=== PATIENT | female | born 1980 | race Caucasian/White ===

== ENCOUNTER 2017-02-06 12:01 | Emergency (ER) | payer OTHER ==
--- NOTE | 2017-02-06 14:37 | DIAGNOSTIC IMAGING REPORT ---
PROCEDURE: CT ABD/PELVIS WITH CONTRAST INDICATION: Bilateral flank pain. Nausea. Vomiting. TECHNIQUE: 100 ml of Isovue 300 were injected intravenously and axial images were obtained of the entire abdomen and pelvis with sagittal and coronal reformations. COMPARISON: Compared CT abdomen and pelvis on 02/04/2012. FINDINGS: ABDOMEN: Mild prominence of the gallbladder and common duct (9 mm). No evidence of intrahepatic ductal dilation. Liver, spleen, pancreas, kidneys, and aorta are normal. Bowel pattern is normal, including appendix. PELVIS: Uterus and adnexal structures are normal. No evidence of free fluid. IMPRESSION: 1. Mild prominence of the gallbladder and common duct (9 mm) appears unchanged. This may be within normal limits. Nevertheless, correlation with liver function studies is recommended. 2. Otherwise negative CT abdomen and pelvis. 3. Findings discussed with KARENA Hernandez. All CT scans at this facility use dose modulation, iterative reconstruction, and/or weight-based dosing when appropriate to reduce radiation dose to as low as reasonably achievable.
--- NOTE | 2017-02-06 14:43 | ED ORDER SUMMARY ---
..... Patient: KOURTNEY MARTINEZ OrderSheet [facility] VisitID: [id number] [place] [address] 36y, F Registration Date/Time: 02/06/2017 ORDER SHEET Weight: 53.5 kg (stated) Allergies: No Known Drug Allergy GENERAL ORDERS: CT Abd/Pel w Cont (No) (pending) Urgent (12:50 02/06/2017 ABlanchette PA-C) (Ack 12:53 TBergley) (14:14 JSanders R.N.) CBC w Diff Urgent (12:51 02/06/2017 ABlanchette PA-C) (Ack 12:53 TBergley) (13:01 JSanders R.N.) Amylase Urgent (12:51 02/06/2017 ABlanchette PA-C) (Ack 12:53 TBergley) (13:01 JSanders R.N.) Lipase Urgent (12:51 02/06/2017 ABlanchette PA-C) (Ack 12:53 TBergley) (13:01 JSanders R.N.) UA-Culture if indicated Urgent (12:51 02/06/2017 ABlanchette PA-C) (Ack 12:53 TBergley) (13:01 JSanders R.N.) CMP Urgent (12:51 02/06/2017 ABlanchette PA-C) (Ack 12:53 TBergley) (13:01 JSanders R.N.) MEDICATION ORDERS: IV FLUIDS: IV NS with Normal Saline 1 Liter: initial bolus none -, then 1000 mL/hr for X1 (NOW) (12:49 02/06/2017 ABlanchette PA-C) (Ack 12:54 SReitz R.N.) (13:02 JSanders R.N.) Reglan IV 10 mg (NOW) (12:49 02/06/2017 ABlanchette PA-C) (Ack 12:54 SReitz R.N.) (13:05 JSanders R.N.) Zofran IV 4 mg (NOW) (14:23 02/06/2017 ABlanchette PA-C) (Ack 14:30 SReitz R.N.) (14:34 Daniel [place]) ORDER SHEET NOTES: [Electronically signed by Val Burgos R.N. (15:22 02/06/2017)] [Electronically signed by Jada Carnes PA-C (16:11 02/06/2017)] [Electronically locked/signed by Val Burgos R.N. (15:22 02/06/2017)]
--- NOTE | 2017-02-06 14:43 | ED NURSING NOTES ---
Clinical Report - [facility] [address] [place] [address] 02/06/2017 12:02 Patient: KOURTNEY MARTINEZ TRIAGE Triage time 12:Feb 06 2017. Acuity: LEVEL 4. Chief Complaint: ABDOMINAL PAIN, NAUSEA and VOMITING and (bilat flank pain). 12:16 02/06/17. SEPSIS SCREEN: Sepsis Screen. Negative (no infection suspected/documented). HASEEB COMA SCORE: Haseeb Coma Scale: 15- eyes open spontaneously (4); best verbal response- oriented x 4 (5); best motor response- obeys commands (6). --12:16 Lona Amador R.N. 12:09 02/06/17. BP: 108/72 (regular adult cuff) taken on the left arm, while sitting. HR: 99. RR: 18. O2 saturation: 98% on room air. Temp: 97.9 F (oral). Pain level now: 8/10. --12:16 Lona Amador R.N. Weight: 53.5 kg stated. Height/Length: 68 inches Per Patient. BMI: 17.9. --12:11 Lona Amador R.N. Medications HYDROmorphone HCl Oral. --12:13 Lona Amador R.N. Gabapentin Oral (Tablet 600 mg) 2 tablets, daily. --12:13 Lona Amador R.N. Topamax Oral (Tablet 50 mg) 1 tablet, daily. --12:13 Lona Amador R.N. Allergies No Known Drug Allergy. --12:13 Lona Amador R.N. History Historian: patient. Onset. (few months). ( This has been happening for the last few months, comes and goes. Has lost approximately 10 pounds). She has had nausea, vomiting and abdominal pain. Last oral intake by patient was (noon yesterday). 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 Last time was last night for the Zofran and 0600 for hydromorphone). PAST MEDICAL HX: Last normal menstrual period- 2.5 weeks ago. Not sexually active. SOCIAL HX: Current every day light tobacco smoker- less than 1/2 a pack per day. History of occasional drug use: marijuana. No alcohol use. No recent travel. No infectious disease exposure. No known contact with a sick individual. ABUSE ASSESSMENT: No report of abuse. --12:16 Lona Amador R.N. Arrived by private vehicle. Primary physician (Greg Mota). --12:16 Lona Amador R.N. PROBLEMS: Acute Pain. Crps nerve damage. CRPS. Urinary Calculi. Nephrolithiasis. Abdominal Pain. --12:13 Lona Amador R.N. ADDITIONAL SURGERIES: no known surgeries. Interventions ID band on patient. To treatment room. --12:16 Lona Amador R.N. PHYSICAL ASSESSMENT 12:17 02/06/17. Ambulatory to room. GENERAL / NEURO / PSYCH: Alert. Oriented X 4. RESPIRATORY: Respirations not labored. CVS: Capillary refill less than 2 seconds. GI / : Abdomen soft. Guarding present. SKIN: Skin is warm. --12:17 Lona Amador R.N. NURSING PROGRESS NOTES The plan of care for this patient has been created. Head of bed elevated. Reassurance given. Two patient identifiers checked. Call light placed in reach. Side rails up x 1. Bed placed in lowest position. Brakes of bed on. Patient ready for evaluation- chart flagged and ED physician notified. --12:17 Lona Amador R.N. ( report given by POORNIMA Zamorano). --12:54 Val Burgos R.N. 12:52 02/06/2017 Site #1 started via IV in the left antecubital space with an 20g angiocath, with aseptic technique and good blood return; one attempt. Blood drawn: rainbow set. Saline lock flushed with 10 mL saline. --13:02 Lona Amador R.N. 13:02 02/06/2017 Started bag #1 1000 mL IV Fluids IV NS (Saline); at 1000 mL/hr over 1 hour(s) via site #1 via IV pump. Allergies verified and confirmed 5 rights. IV patency established. IV site checked: no pain, redness, or swelling. IV flushed thoroughly pre- and post-medication administration. --13:02 Lona Amador R.N. 13:05 02/06/2017 Reglan (Metoclopramide HCl) IVP 10 mg given over 2 minute(s) via site #1. Allergies verified and confirmed 5 rights. IV patency established. IV site checked: no pain, redness, or swelling. IV flushed thoroughly pre- and post-medication administration. IVP given by RN. --13:05 Lona Amador R.N. ( Patient given another blanket for comfort). --13:07 Lona Amador R.N. 13:01 02/06/17. BP: 106/67 (regular adult cuff) taken on the right arm, while sitting. HR: 79. RR: 16 (regular). O2 saturation: 100% on room air. Pain level now: 8/10. Additional comments: bilat flank. --13:07 Lona Amador R.N. 14:12 02/06/17. BP: 108/58 (regular adult cuff) taken on the right arm, while sitting. HR: 80. RR: 18 (regular). O2 saturation: 100% on room air. Pain level now: 8/10. --14:13 Lona Amador R.N. ( Patient just got back from CT, her mom is now here sitting at bedside). --14:13 Lona Amador R.N. 13:30 02/06/2017 Reglan IVP Response: pain is improving. Symptoms have improved the patient feels better. --14:13 Lona Amador R.N. 14:13 02/06/2017 IV Fluids IV NS Discontinued: bag #1 completed. Total amount infused: 1000 mL. IV patency established. IV site checked: no pain, redness, or swelling. IV flushed thoroughly. --14:13 Lona Amador R.N. 14:34 02/06/2017 Zofran (Ondansetron HCl) IVP 4 mg given over 1 minute(s) via site #1. Allergies verified and confirmed 5 rights. IV patency established. IV site checked: no pain, redness, or swelling. IV flushed thoroughly pre- and post-medication administration. --14:34 Val Burgos R.N. 14:34 02/06/17. BP: 106/58. HR: 76. RR: 18. O2 saturation: 98%. Pain level now 8/10. --14:36 Val Burgos R.N. DISPOSITION / DISCHARGE 14:52 02/06/17. BP: 106/55. HR: 67. RR: 17. O2 saturation: 98%. Temp: 98.1 F. Pain level now 0/10. --14:52 Russell Baxter R.N. 14:48 02/06/2017 Site #1 removed upon discharge. Catheter intact. Manual pressure and bandaid applied. --15:22 Val Burgos R.N. 14:52 02/06/17. Departure time: 1448. Condition at departure: improved and stable. No learning barriers present. Discharge instructions provided and reviewed with the patient and family. Reviewed medication(s) side effects, precautions, dosing and course information. Prescription(s) given to the patient. Activity restrictions (rest) reviewed. Patient verbalized understanding. Written instructions provided in [place]an. The patient was discharged by the physician title i assistant. She was discharged home and accompanied by family. She left the Emergency Department ambulatory and via private vehicle. Family member driving. --14:52 Russell Baxter R.N. Locked/Released at 02/06/2017 15:22 by Val Burgos R.N.
--- NOTE | 2017-02-06 14:43 | ED ORDER SUMMARY ---
..... Patient: KOURTNEY MARTINEZ OrderSheet [facility] VisitID: [id number] [place] [address] 36y, F Registration Date/Time: 02/06/2017 ORDER SHEET Weight: 53.5 kg (stated) Allergies: No Known Drug Allergy GENERAL ORDERS: CT Abd/Pel w Cont (No) (pending) Urgent (12:50 02/06/2017 ABlanchette PA-C) (Ack 12:53 TBergley) (14:14 JSanders R.N.) CBC w Diff Urgent (12:51 02/06/2017 ABlanchette PA-C) (Ack 12:53 TBergley) (13:01 JSanders R.N.) Amylase Urgent (12:51 02/06/2017 ABlanchette PA-C) (Ack 12:53 TBergley) (13:01 JSanders R.N.) Lipase Urgent (12:51 02/06/2017 ABlanchette PA-C) (Ack 12:53 TBergley) (13:01 JSanders R.N.) UA-Culture if indicated Urgent (12:51 02/06/2017 ABlanchette PA-C) (Ack 12:53 TBergley) (13:01 JSanders R.N.) CMP Urgent (12:51 02/06/2017 ABlanchette PA-C) (Ack 12:53 TBergley) (13:01 JSanders R.N.) MEDICATION ORDERS: IV FLUIDS: IV NS with Normal Saline 1 Liter: initial bolus none -, then 1000 mL/hr for X1 (NOW) (12:49 02/06/2017 ABlanchette PA-C) (Ack 12:54 SReitz R.N.) (13:02 JSanders R.N.) Reglan IV 10 mg (NOW) (12:49 02/06/2017 ABlanchette PA-C) (Ack 12:54 SReitz R.N.) (13:05 JSanders R.N.) Zofran IV 4 mg (NOW) (14:23 02/06/2017 ABlanchette PA-C) (Ack 14:30 SReitz R.N.) (14:34 Daniel [place]) ORDER SHEET NOTES: [Electronically signed by Val Burgos R.N. (15:22 02/06/2017)] [Electronically signed by Jada Carnes PA-C (16:11 02/06/2017)] [Electronically locked/signed by Val Burgos R.N. (15:22 02/06/2017)]
--- NOTE | 2017-02-06 14:43 | ED CLINICAL REPORT ---
Clinical Report - Physicians/Mid Levels [facility] [address] [place] [address] 02/06/2017 12:02 Patient: CINDI MARTINEZ Time Seen: 12:18; initial patient contact. Arrived- By private vehicle. Historian- patient. HISTORY OF PRESENT ILLNESS Chief Complaint: VOMITING and DIARRHEA. This started 2 weeks ago; pt is on chronic pain contract/meds currently on dilaudid 8mg [id number] for crps of the back. states she became nauseated about 2 weeks ago, and has had difficulty keeping her meds down since, with low back pain, had an ultrasound and it was neg...no black or tarry stools, no coffee ground emesis,no fever, no chills, no real abdominal pain either...she has a history of some cyclical vomiting. and is still present. The patient has had flank pain. She has had nausea and vomiting. No diarrhea, black stools or bloody stools. Has recently been camping. The illness is described as moderate. Similar symptoms previously: Several times. Recent medical care: The patient was seen recently at another facility in a clinic. REVIEW OF SYSTEMS No fever, difficulty with urination or dark urine. She has had muscle aches. All systems otherwise negative, except as recorded above. PAST HISTORY See nurses notes. Problems: Acute Pain. Lifestyle / Substance Problems. Crps nerve damage. CRPS. Vomiting. Urinary Calculi. Nephrolithiasis. Abdominal Pain. Immunizations. LNMP - Last Normal Menstrual Period. Pyelonephritis [RuleOut]. Additional Surgeries: no known surgeries. Medications: Topamax Oral (Tablet 50 mg) 1 tablet, daily. Gabapentin Oral (Tablet 600 mg) 2 tablets, daily. HYDROmorphone HCl Oral. Allergies: No Known Drug Allergy. SOCIAL HISTORY Never smoker. Occasional alcohol use. No drug use. FAMILY HISTORY Negative. ADDITIONAL NOTES The nursing notes have been reviewed with agreement regarding the chief complaint, HPI, ROS, PMH and patient medications and allergies. PHYSICAL EXAM Vital Signs: 02/06/2017 12:09 BP: 108/72. HR: 99. RR: 18. O2 saturation: 98%. Temp: 97.9 F. Pain level now: 06/24. Have been reviewed. Blood pressure normal. Appearance: Alert. Oriented X3. Appears to be in pain. Patient in mild distress. Eyes: Pupils equal, round and reactive to light. Eyes normal inspection. ENT: Ears normal. Nose normal. Neck: Normal inspection. Neck supple. CVS: Normal heart rate and rhythm. Heart sounds normal. Pulses normal. Respiratory: No respiratory distress. Breath sounds normal. Abdomen: Soft and nontender. No organomegaly. No mass. Femoral pulses equal. Back: Normal inspection. No CVA tenderness. Skin: Skin warm and dry. Normal skin color. No rash. Normal skin turgor. Extremities: No lower extremity edema. Neuro: Oriented X 3. LABS, X-RAYS, AND EKG Abdominal CT: Name: Cindi Martinez : 1980 MR#: [id number] Ordering Provider: TREY RUEDA Exam(s): CT ABD/PELVIS WITH CONTRAST Date of Exam: 02/06/2017 __ PROCEDURE: CT ABD/PELVIS WITH CONTRAST INDICATION: Bilateral flank pain. Nausea. Vomiting. TECHNIQUE: 100 ml of Isovue 300 were injected intravenously and axial images were obtained of the entire abdomen and pelvis with sagittal and coronal reformations. COMPARISON: Compared CT abdomen and pelvis on 02/04/2012. FINDINGS: ABDOMEN: Mild prominence of the gallbladder and common duct (9 mm). No evidence of intrahepatic ductal dilation. Liver, spleen, pancreas, kidneys, and aorta are normal. Bowel pattern is normal, including appendix. PELVIS: Uterus and adnexal structures are normal. No evidence of free fluid. IMPRESSION: 1. Mild prominence of the gallbladder and common duct (9 mm) appears unchanged. This may be within normal limits. Nevertheless, correlation with liver function studies is recommended. 2. Otherwise negative CT abdomen and pelvis. 3. Findings discussed with KARENA Hernandez. All CT scans at this facility use dose modulation, iterative reconstruction, and/or weight-based dosing when appropriate to reduce radiation dose to as low as reasonably achievable. Electronically Final signed by:Josh Alvarez MD 02/06/2017 2:34:48 PM Technologist: CODY. Laboratory Tests: UA-Culture if indicated: (LORRIE: 02/06/2017 12:12) ( [facility] [place] 13:12) Final results Test Result Flag Units (Reference) URINE COLOR ESTEFANI URINE APPEARANCE CLEAR URINE GLUCOSE NEGATIVE (NEGATIVE) URINE BILIRUBIN ICTOTEST NEGATIVE (NEGATIVE) URINE KETONE NEGATIVE (NEGATIVE) URINE SPECIFIC GRAVITY 1.025 (1.010-1.030) URINE PH 5.5 (5.0-8.0) URINE PROTEIN TRACE (NEGATIVE) URINE UROBILINOGEN 1.0 EU/dL (0.2-1.0) URINE NITRITE NEGATIVE (NEGATIVE) URINE BLOOD NEGATIVE (NEGATIVE) URINE LEUK ESTERASE NEGATIVE (NEGATIVE) URINE RBC 5-10 rbc/hpf (0-1) URINE WBC 1-3 wbc/hpf (0-1) URINE EPITHELIAL CELLS 3-5 EPI/hpf (0-5) URINE BACTERIA FEW (1+) (NONE SEEN) URINE COMMENT CULT NOT INDICATED 3+ MUCOUSURINE CULTURES ARE SET-UP BASED ON THE FOLLOWING CRITERIA:POSITIVE NITRITEPOSITIVE LEUKOCYTE ESTERASEGREATER THAN 10 WHITE BLOOD CELLSMODERATE (2+) OR GREATER BACTERIA CBC w Diff: (LORRIE: 02/06/2017 12:55) ( [facility] [place] 13:15) Final results Test Result Flag Units (Reference) WHITE BLOOD COUNT 7.6 K/uL (4.5-11.5) RED BLOOD COUNT 4.94 M/uL (4.00-5.20) HEMOGLOBIN 14.2 gm/dL (12.0-16.0) HEMATOCRIT 42.6 % (36.0-46.0) MEAN CELL VOLUME 86 fL (80-100) MEAN CORPUSCULAR HGB 29 pg (26-34) MEAN CORPUSCULAR HGB CONC 33 g/dL (31-37) RED CELL DISTRIBUTION WIDTH 13.7 % (11.6-14.8) PLATELET COUNT 296 K/uL (150-400) NEUTROPHIL % 79.5 H % (50-75) LYMPH % 12.8 L % (25-40) MONO % 7.3 % (3-14) EOSINOPHIL % 0.1 % (0-4) BASOPHIL % 0.3 % (0-2) CMP: (LORRIE: 02/06/2017 12:55) ( MsgRcvd 02/06/2017 13:39) Final results Test Result Flag Units (Reference) GLUCOSE 112 H mg/dL (70-110) BUN 17 mg/dL (7-18) CREATININE 0.7 mg/dL (0.6-1.3) Estimated GFR >60 mL/min Estimated GFR- >60 mL/min Note: Persistent reduction over 3 months in eGFR<60 mL/min/1.73 m2 defines CKD. Patients with eGFR values>=60 mL/min/1.73 m2 may also have CKD if evidence ofpersistent proteinuria. Additional information may be foundat www.kidney.org. SODIUM 139 mmol/L (136-145) POTASSIUM 4.4 mmol/L (3.5-5.1) CHLORIDE 101 mmol/L (98-107) CARBON DIOXIDE 31 mmol/L (21-32) CALCIUM 9.1 mg/dL (8.5-10.1) TOTAL PROTEIN 7.8 g/dL (6.4-8.2) ALBUMIN 3.8 g/dL (3.3-5.0) BILIRUBIN, TOTAL 0.4 mg/dL (0.0-1.0) ALKALINE PHOSPHATASE 106 U/L (46-116) AST (SGOT) 40 H U/L (15-37) ALT (SGPT) 38 U/L (12-78) LIPASE 60 L U/L (73-393) AMYLASE 56 U/L (25-115) . PROGRESS AND PROCEDURES Course of Care: sx markedly improved with reglan IV. Patient is stable. Physical exam findings are improved. Symptoms much better. CLINICAL IMPRESSION Intractable vomiting with nausea and dehydration. Possible narcotic withdrawal. INSTRUCTIONS Rest. Take clear liquids only for the next 24 hours as needed. Advance diet as tolerated. No alcohol. (take your anti nausea medication and then your chronic pain meds, and follow up with your pain specialist Wednesday as scheduled.). Warnings: Further evaluation is necessary. GENERAL WARNINGS: Return or contact your physician immediately if your condition worsens or changes unexpectedly, if not improving as expected, or if other problems arise. Your Current Medications: CONTINUE TAKING THE FOLLOWING MEDICATIONS: Gabapentin Oral : Tablet 600 mg, 2 tablets daily. HYDROmorphone HCl Oral. Topamax Oral : Tablet 50 mg, 1 tablet daily. Prescription Medications: Zofran (orally disintegrating tablets) 4 mg: take 1 orally every 6 hours as needed for nausea and vomiting. Dispense ten (10). No refill. Substitution is permissible. Follow-up: Follow up with your doctor Wednesday even if well. Call for an appointment. Understanding of the discharge instructions verbalized by patient. (Electronically signed by Trey Rueda PA-C 02/06/2017 16:11)
--- NOTE | 2017-02-06 14:43 | ED NURSING NOTES ---
Clinical Report - Nurses [facility] [address] [place] [address] 02/06/2017 12:02 Patient: KOURTNEY MARTINEZ TRIAGE Triage time 12:Feb 06 2017. Acuity: LEVEL 4. Chief Complaint: ABDOMINAL PAIN, NAUSEA and VOMITING and (bilat flank pain). 12:16 02/06/17. SEPSIS SCREEN: Sepsis Screen. Negative (no infection suspected/documented). HASEEB COMA SCORE: Haseeb Coma Scale: 15- eyes open spontaneously (4); best verbal response- oriented x 4 (5); best motor response- obeys commands (6). --12:16 Lona Amador R.N. 12:09 02/06/17. BP: 108/72 (regular adult cuff) taken on the left arm, while sitting. HR: 99. RR: 18. O2 saturation: 98% on room air. Temp: 97.9 F (oral). Pain level now: 8/10. --12:16 Lona Amador R.N. Weight: 53.5 kg stated. Height/Length: 68 inches Per Patient. BMI: 17.9. --12:11 Lona Amador R.N. Medications HYDROmorphone HCl Oral. --12:13 Lona Amador R.N. Gabapentin Oral (Tablet 600 mg) 2 tablets, daily. --12:13 Lona Amador R.N. Topamax Oral (Tablet 50 mg) 1 tablet, daily. --12:13 Lona Amador R.N. Allergies No Known Drug Allergy. --12:13 Lona Amador R.N. History Historian: patient. Onset. (few months). ( This has been happening for the last few months, comes and goes. Has lost approximately 10 pounds). She has had nausea, vomiting and abdominal pain. Last oral intake by patient was (noon yesterday). 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 Last time was last night for the Zofran and 0600 for hydromorphone). PAST MEDICAL HX: Last normal menstrual period- 2.5 weeks ago. Not sexually active. SOCIAL HX: Current every day light tobacco smoker- less than 1/2 a pack per day. History of occasional drug use: marijuana. No alcohol use. No recent travel. No infectious disease exposure. No known contact with a sick individual. ABUSE ASSESSMENT: No report of abuse. --12:16 Lona Amador R.N. Arrived by private vehicle. Primary physician (Greg Mota). --12:16 Lona Amador R.N. PROBLEMS: Acute Pain. Crps nerve damage. CRPS. Urinary Calculi. Nephrolithiasis. Abdominal Pain. --12:13 Lona Amador R.N. ADDITIONAL SURGERIES: no known surgeries. Interventions ID band on patient. To treatment room. --12:16 Lona Amador R.N. PHYSICAL ASSESSMENT 12:17 02/06/17. Ambulatory to room. GENERAL / NEURO / PSYCH: Alert. Oriented X 4. RESPIRATORY: Respirations not labored. CVS: Capillary refill less than 2 seconds. GI / : Abdomen soft. Guarding present. SKIN: Skin is warm. --12:17 Lona Amador R.N. NURSING PROGRESS NOTES The plan of care for this patient has been created. Head of bed elevated. Reassurance given. Two patient identifiers checked. Call light placed in reach. Side rails up x 1. Bed placed in lowest position. Brakes of bed on. Patient ready for evaluation- chart flagged and ED physician notified. --12:17 Lona Amador R.N. ( report given by POORNIMA Zamorano). --12:54 Val Burgos R.N. 12:52 02/06/2017 Site #1 started via IV in the left antecubital space with an 20g angiocath, with aseptic technique and good blood return; one attempt. Blood drawn: rainbow set. Saline lock flushed with 10 mL saline. --13:02 Lona Amador R.N. 13:02 02/06/2017 Started bag #1 1000 mL IV Fluids IV NS (Saline); at 1000 mL/hr over 1 hour(s) via site #1 via IV pump. Allergies verified and confirmed 5 rights. IV patency established. IV site checked: no pain, redness, or swelling. IV flushed thoroughly pre- and post-medication administration. --13:02 Lona Amador R.N. 13:05 02/06/2017 Reglan (Metoclopramide HCl) IVP 10 mg given over 2 minute(s) via site #1. Allergies verified and confirmed 5 rights. IV patency established. IV site checked: no pain, redness, or swelling. IV flushed thoroughly pre- and post-medication administration. IVP given by RN. --13:05 Lona Amador R.N. ( Patient given another blanket for comfort). --13:07 Lona Amador R.N. 13:01 02/06/17. BP: 106/67 (regular adult cuff) taken on the right arm, while sitting. HR: 79. RR: 16 (regular). O2 saturation: 100% on room air. Pain level now: 8/10. Additional comments: bilat flank. --13:07 Lona Amador R.N. 14:12 02/06/17. BP: 108/58 (regular adult cuff) taken on the right arm, while sitting. HR: 80. RR: 18 (regular). O2 saturation: 100% on room air. Pain level now: 8/10. --14:13 Lona Amador R.N. ( Patient just got back from CT, her mom is now here sitting at bedside). --14:13 Lona Amador R.N. 13:30 02/06/2017 Reglan IVP Response: pain is improving. Symptoms have improved the patient feels better. --14:13 Lona Amador R.N. 14:13 02/06/2017 IV Fluids IV NS Discontinued: bag #1 completed. Total amount infused: 1000 mL. IV patency established. IV site checked: no pain, redness, or swelling. IV flushed thoroughly. --14:13 Lona Amador R.N. 14:34 02/06/2017 Zofran (Ondansetron HCl) IVP 4 mg given over 1 minute(s) via site #1. Allergies verified and confirmed 5 rights. IV patency established. IV site checked: no pain, redness, or swelling. IV flushed thoroughly pre- and post-medication administration. --14:34 Val Burgos R.N. 14:34 02/06/17. BP: 106/58. HR: 76. RR: 18. O2 saturation: 98%. Pain level now 8/10. --14:36 Val Burgos R.N. DISPOSITION / DISCHARGE 14:52 02/06/17. BP: 106/55. HR: 67. RR: 17. O2 saturation: 98%. Temp: 98.1 F. Pain level now 0/10. --14:52 Russell Baxter R.N. 14:48 02/06/2017 Site #1 removed upon discharge. Catheter intact. Manual pressure and bandaid applied. --15:22 Val Burgos R.N. 14:52 02/06/17. Departure time: 1448. Condition at departure: improved and stable. No learning barriers present. Discharge instructions provided and reviewed with the patient and family. Reviewed medication(s) side effects, precautions, dosing and course information. Prescription(s) given to the patient. Activity restrictions (rest) reviewed. Patient verbalized understanding. Written instructions provided in [place] [employer]. The patient was discharged by the physician school health assistant. She was discharged home and accompanied by family. She left the Emergency Department ambulatory and via private vehicle. Family member driving. --14:52 Russell Baxter R.N. Locked/Released at 02/06/2017 15:22 by Val Burgos R.N.
--- NOTE | 2017-02-06 14:43 | ED CLINICAL REPORT ---
Clinical Report - Physicians/Mid Levels [facility] [address] [place] [address] 02/06/2017 12:02 Patient: CINDI MARTINEZ Time Seen: 12:18; initial patient contact. Arrived- By private vehicle. Historian- patient. HISTORY OF PRESENT ILLNESS Chief Complaint: VOMITING and DIARRHEA. This started 2 weeks ago; pt is on chronic pain contract/meds currently on dilaudid 8mg [id number] for crps of the back. states she became nauseated about 2 weeks ago, and has had difficulty keeping her meds down since, with low back pain, had an ultrasound and it was neg...no black or tarry stools, no coffee ground emesis,no fever, no chills, no real abdominal pain either...she has a history of some cyclical vomiting. and is still present. The patient has had flank pain. She has had nausea and vomiting. No diarrhea, black stools or bloody stools. Has recently been camping. The illness is described as moderate. Similar symptoms previously: Several times. Recent medical care: The patient was seen recently at another facility in a clinic. REVIEW OF SYSTEMS No fever, difficulty with urination or dark urine. She has had muscle aches. All systems otherwise negative, except as recorded above. PAST HISTORY See nurses notes. Problems: Acute Pain. Lifestyle / Substance Problems. Crps nerve damage. CRPS. Vomiting. Urinary Calculi. Nephrolithiasis. Abdominal Pain. Immunizations. LNMP - Last Normal Menstrual Period. Pyelonephritis [RuleOut]. Additional Surgeries: no known surgeries. Medications: Topamax Oral (Tablet 50 mg) 1 tablet, daily. Gabapentin Oral (Tablet 600 mg) 2 tablets, daily. HYDROmorphone HCl Oral. Allergies: No Known Drug Allergy. SOCIAL HISTORY Never smoker. Occasional alcohol use. No drug use. FAMILY HISTORY Negative. ADDITIONAL NOTES The nursing notes have been reviewed with agreement regarding the chief complaint, HPI, ROS, PMH and patient medications and allergies. PHYSICAL EXAM Vital Signs: 02/06/2017 12:09 BP: 108/72. HR: 99. RR: 18. O2 saturation: 98%. Temp: 97.9 F. Pain level now: 06/24. Have been reviewed. Blood pressure normal. Appearance: Alert. Oriented X3. Appears to be in pain. Patient in mild distress. Eyes: Pupils equal, round and reactive to light. Eyes normal inspection. ENT: Ears normal. Nose normal. Neck: Normal inspection. Neck supple. CVS: Normal heart rate and rhythm. Heart sounds normal. Pulses normal. Respiratory: No respiratory distress. Breath sounds normal. Abdomen: Soft and nontender. No organomegaly. No mass. Femoral pulses equal. Back: Normal inspection. No CVA tenderness. Skin: Skin warm and dry. Normal skin color. No rash. Normal skin turgor. Extremities: No lower extremity edema. Neuro: Oriented X 3. LABS, X-RAYS, AND EKG Abdominal CT: Name: Cindi Martinez : 1980 MR#: [id number] Ordering Provider: TREY RUEDA Exam(s): CT ABD/PELVIS WITH CONTRAST Date of Exam: 02/06/2017 __ PROCEDURE: CT ABD/PELVIS WITH CONTRAST INDICATION: Bilateral flank pain. Nausea. Vomiting. TECHNIQUE: 100 ml of Isovue 300 were injected intravenously and axial images were obtained of the entire abdomen and pelvis with sagittal and coronal reformations. COMPARISON: Compared CT abdomen and pelvis on 02/04/2012. FINDINGS: ABDOMEN: Mild prominence of the gallbladder and common duct (9 mm). No evidence of intrahepatic ductal dilation. Liver, spleen, pancreas, kidneys, and aorta are normal. Bowel pattern is normal, including appendix. PELVIS: Uterus and adnexal structures are normal. No evidence of free fluid. IMPRESSION: 1. Mild prominence of the gallbladder and common duct (9 mm) appears unchanged. This may be within normal limits. Nevertheless, correlation with liver function studies is recommended. 2. Otherwise negative CT abdomen and pelvis. 3. Findings discussed with KARENA Hernandez. All CT scans at this facility use dose modulation, iterative reconstruction, and/or weight-based dosing when appropriate to reduce radiation dose to as low as reasonably achievable. Electronically Final signed by:Josh Alvarez MD 02/06/2017 2:34:48 PM Technologist: CODY. Laboratory Tests: UA-Culture if indicated: (LORRIE: 02/06/2017 12:12) ( [facility] 02/06/2017 13:12) Final results Test Result Flag Units (Reference) URINE COLOR ESTEFANI URINE APPEARANCE CLEAR URINE GLUCOSE NEGATIVE (NEGATIVE) URINE BILIRUBIN ICTOTEST NEGATIVE (NEGATIVE) URINE KETONE NEGATIVE (NEGATIVE) URINE SPECIFIC GRAVITY 1.025 (1.010-1.030) URINE PH 5.5 (5.0-8.0) URINE PROTEIN TRACE (NEGATIVE) URINE UROBILINOGEN 1.0 EU/dL (0.2-1.0) URINE NITRITE NEGATIVE (NEGATIVE) URINE BLOOD NEGATIVE (NEGATIVE) URINE LEUK ESTERASE NEGATIVE (NEGATIVE) URINE RBC 5-10 rbc/hpf (0-1) URINE WBC 1-3 wbc/hpf (0-1) URINE EPITHELIAL CELLS 3-5 EPI/hpf (0-5) URINE BACTERIA FEW (1+) (NONE SEEN) URINE COMMENT CULT NOT INDICATED 3+ MUCOUSURINE CULTURES ARE SET-UP BASED ON THE FOLLOWING CRITERIA:POSITIVE NITRITEPOSITIVE LEUKOCYTE ESTERASEGREATER THAN 10 WHITE BLOOD CELLSMODERATE (2+) OR GREATER BACTERIA CBC w Diff: (LORRIE: 02/06/2017 12:55) ( [facility] 02/06/2017 13:15) Final results Test Result Flag Units (Reference) WHITE BLOOD COUNT 7.6 K/uL (4.5-11.5) RED BLOOD COUNT 4.94 M/uL (4.00-5.20) HEMOGLOBIN 14.2 gm/dL (12.0-16.0) HEMATOCRIT 42.6 % (36.0-46.0) MEAN CELL VOLUME 86 fL (80-100) MEAN CORPUSCULAR HGB 29 pg (26-34) MEAN CORPUSCULAR HGB CONC 33 g/dL (31-37) RED CELL DISTRIBUTION WIDTH 13.7 % (11.6-14.8) PLATELET COUNT 296 K/uL (150-400) NEUTROPHIL % 79.5 H % (50-75) LYMPH % 12.8 L % (25-40) MONO % 7.3 % (3-14) EOSINOPHIL % 0.1 % (0-4) BASOPHIL % 0.3 % (0-2) CMP: (LORRIE: 02/06/2017 12:55) ( MsgRcvd 02/06/2017 13:39) Final results Test Result Flag Units (Reference) GLUCOSE 112 H mg/dL (70-110) BUN 17 mg/dL (7-18) CREATININE 0.7 mg/dL (0.6-1.3) Estimated GFR >60 mL/min Estimated GFR- >60 mL/min Note: Persistent reduction over 3 months in eGFR<60 mL/min/1.73 m2 defines CKD. Patients with eGFR values>=60 mL/min/1.73 m2 may also have CKD if evidence ofpersistent proteinuria. Additional information may be foundat [email or web address].org. SODIUM 139 mmol/L (136-145) POTASSIUM 4.4 mmol/L (3.5-5.1) CHLORIDE 101 mmol/L (98-107) CARBON DIOXIDE 31 mmol/L (21-32) CALCIUM 9.1 mg/dL (8.5-10.1) TOTAL PROTEIN 7.8 g/dL (6.4-8.2) ALBUMIN 3.8 g/dL (3.3-5.0) BILIRUBIN, TOTAL 0.4 mg/dL (0.0-1.0) ALKALINE PHOSPHATASE 106 U/L (46-116) AST (SGOT) 40 H U/L (15-37) ALT (SGPT) 38 U/L (12-78) LIPASE 60 L U/L (73-393) AMYLASE 56 U/L (25-115) . PROGRESS AND PROCEDURES Course of Care: sx markedly improved with reglan IV. Patient is stable. Physical exam findings are improved. Symptoms much better. CLINICAL IMPRESSION Intractable vomiting with nausea and dehydration. Possible narcotic withdrawal. INSTRUCTIONS Rest. Take clear liquids only for the next 24 hours as needed. Advance diet as tolerated. No alcohol. (take your anti nausea medication and then your chronic pain meds, and follow up with your pain specialist Wednesday as scheduled.). Warnings: Further evaluation is necessary. GENERAL WARNINGS: Return or contact your physician immediately if your condition worsens or changes unexpectedly, if not improving as expected, or if other problems arise. Your Current Medications: CONTINUE TAKING THE FOLLOWING MEDICATIONS: Gabapentin Oral : Tablet 600 mg, 2 tablets daily. HYDROmorphone HCl Oral. Topamax Oral : Tablet 50 mg, 1 tablet daily. Prescription Medications: Zofran (orally disintegrating tablets) 4 mg: take 1 orally every 6 hours as needed for nausea and vomiting. Dispense ten (10). No refill. Substitution is permissible. Follow-up: Follow up with your doctor Wednesday even if well. Call for an appointment. Understanding of the discharge instructions verbalized by patient. (Electronically signed by Trey Rueda PA-C 02/06/2017 16:11)
--- NOTE | 2017-02-06 16:11 | ED DISCHARGE INSTRUCTIONS ---
Patient: KOURTNEY MARTINEZ General Instructions [facility] VisitID: [id number] [place] [address] 36y, F Registration Date/Time: 02/06/2017 Intractable vomiting with nausea and dehydration. INSTRUCTIONS Rest. Take clear liquids only for the next 24 hours as needed. Advance diet as tolerated. No alcohol. (take your anti nausea medication and then your chronic pain meds, and follow up with your pain specialist Wednesday as scheduled.). Warnings: Further evaluation is necessary. GENERAL WARNINGS: Return or contact your physician immediately if your condition worsens or changes unexpectedly, if not improving as expected, or if other problems arise. Your Current Medications: CONTINUE TAKING THE FOLLOWING MEDICATIONS: Gabapentin Oral : Tablet 600 mg, 2 tablets daily. HYDROmorphone HCl Oral. Topamax Oral : Tablet 50 mg, 1 tablet daily. Prescription Medications: Zofran (orally disintegrating tablets) 4 mg: take 1 orally every 6 hours as needed for nausea and vomiting. Dispense ten (10). No refill. Substitution is permissible. Follow-up: Follow up with your doctor Wednesday even if well. Call for an appointment. Understanding of the discharge instructions verbalized by patient. ADDITIONAL INFORMATION Ondansetron Oral disintegrating tablet What is this medicine? ONDANSETRON (on DAYANA se charissa) is used to treat nausea and vomiting caused by chemotherapy. It is also used to prevent or treat nausea and vomiting after surgery. How should I use this medicine? These tablets are made to dissolve in the mouth. Do not try to push the tablet through the foil backing. With dry hands, peel away the foil backing and gently remove the tablet. Place the tablet in the mouth and allow it to dissolve, then swallow. While you may take these tablets with water, it is not necessary to do so. Talk to your drill press operator for metal regarding the use of this medicine in children. Special care may be needed. What side effects may I notice from receiving this medicine? Side effects that you should report to your doctor or health child care coordinator as soon as possible: allergic reactions like skin rash, itching or hives, swelling of the face, lips, or tongue breathing problems dizziness fast or irregular heartbeat feeling faint or lightheaded, falls fever and chills swelling of the hands and feet tightness in the chest Side effects that usually do not require medical attention (report to your doctor or health child care coordinator if they continue or are bothersome): constipation or diarrhea headache What may interact with this medicine? Do not take this medicine with any of the following medications: -apomorphine -cisapride -dofetilide -dronedarone -pimozide -thioridazine -ziprasidone This medicine may also interact with the following medications: -carbamazepine -phenytoin -rifampicin -tramadol -other medicines that prolong the QT interval (cause an abnormal heart rhythm) What if I miss a dose? If you miss a dose, take it as soon as you can. If it is almost time for your next dose, take only that dose. Do not take double or extra doses. Where should I keep my medicine? Keep out of the reach of children. Store between 2 and 30 degrees C (36 and 86 degrees F). Throw away any unused medicine after the expiration date. What should I tell my health care provider before I take this medicine? They need to know if you have any of these conditions: heart disease history of irregular heartbeat liver disease low levels of magnesium or potassium in the blood an unusual or allergic reaction to ondansetron, granisetron, other medicines, foods, dyes, or preservatives or trying to get breast-feeding What should I watch for while using this medicine? Check with your doctor or health child care coordinator as soon as you can if you have any sign of an allergic reaction. You have been given the following additional information: Ondansetron Oral disintegrating tablet Rest. (Electronically signed by Jada Carnes PA-C 02/06/2017 16:11)
--- NOTE | 2017-02-06 16:11 | ED MED RECONCILIATION SUMMARY ---
Patient: KOURTNEY MARTINEZ Medication Reconciliation Report [facility] VisitID: [id number] [place] [address] 36y, F Registration Date/Time: 02/06/2017 Weight: 53.5 kg Height/Length: 68 in. BMI: 17.9 ALLERGIES: No Known Drug Allergy The patient's Home Medications are listed below: CONTINUE TAKING THE FOLLOWING MEDICATIONS: Gabapentin Oral (600 mg) 2 tablets, daily HYDROmorphone HCl Oral Topamax Oral (50 mg) 1 tablet, daily The source(s) of the original Home Medication information: Not obtained. The following Medications were given to the patient in the Emergency Department: IV NS IV Fluids bolus 0, then 1000 mL/hr, administered: 02/06/2017 1:02:00 PM Reglan [IVP] IVP 10 mg, administered: 02/06/2017 1:05:00 PM Zofran [IVP] IVP 4 mg, administered: 02/06/2017 2:34:00 PM The following Medications were prescribed to the patient: Zofran (orally disintegrating tablets) 4 mg: take 1 orally every 6 hours as needed for nausea and vomiting. Dispense ten (10). No refill. Substitution is permissible. -- Jada Carnes PA-C
--- NOTE | 2017-02-06 16:11 | ED DISCHARGE INSTRUCTIONS ---
Patient: KOURTNEY MARTINEZ General Instructions [facility] VisitID: [id number] [place] [address] 36y, F Registration Date/Time: 02/06/2017 Intractable vomiting with nausea and dehydration. INSTRUCTIONS Rest. Take clear liquids only for the next 24 hours as needed. Advance diet as tolerated. No alcohol. (take your anti nausea medication and then your chronic pain meds, and follow up with your pain specialist Wednesday as scheduled.). Warnings: Further evaluation is necessary. GENERAL WARNINGS: Return or contact your physician immediately if your condition worsens or changes unexpectedly, if not improving as expected, or if other problems arise. Your Current Medications: CONTINUE TAKING THE FOLLOWING MEDICATIONS: Gabapentin Oral : Tablet 600 mg, 2 tablets daily. HYDROmorphone HCl Oral. Topamax Oral : Tablet 50 mg, 1 tablet daily. Prescription Medications: Zofran (orally disintegrating tablets) 4 mg: take 1 orally every 6 hours as needed for nausea and vomiting. Dispense ten (10). No refill. Substitution is permissible. Follow-up: Follow up with your doctor Wednesday even if well. Call for an appointment. Understanding of the discharge instructions verbalized by patient. ADDITIONAL INFORMATION Ondansetron Oral disintegrating tablet What is this medicine? ONDANSETRON (on DAYANA se charissa) is used to treat nausea and vomiting caused by chemotherapy. It is also used to prevent or treat nausea and vomiting after surgery. How should I use this medicine? These tablets are made to dissolve in the mouth. Do not try to push the tablet through the foil backing. With dry hands, peel away the foil backing and gently remove the tablet. Place the tablet in the mouth and allow it to dissolve, then swallow. While you may take these tablets with water, it is not necessary to do so. Talk to your transliterator regarding the use of this medicine in children. Special care may be needed. What side effects may I notice from receiving this medicine? Side effects that you should report to your doctor or health neonatal intensive care unit nurse as soon as possible: allergic reactions like skin rash, itching or hives, swelling of the face, lips, or tongue breathing problems dizziness fast or irregular heartbeat feeling faint or lightheaded, falls fever and chills swelling of the hands and feet tightness in the chest Side effects that usually do not require medical attention (report to your doctor or health neonatal intensive care unit nurse if they continue or are bothersome): constipation or diarrhea headache What may interact with this medicine? Do not take this medicine with any of the following medications: -apomorphine -cisapride -dofetilide -dronedarone -pimozide -thioridazine -ziprasidone This medicine may also interact with the following medications: -carbamazepine -phenytoin -rifampicin -tramadol -other medicines that prolong the QT interval (cause an abnormal heart rhythm) What if I miss a dose? If you miss a dose, take it as soon as you can. If it is almost time for your next dose, take only that dose. Do not take double or extra doses. Where should I keep my medicine? Keep out of the reach of children. Store between 2 and 30 degrees C (36 and 86 degrees F). Throw away any unused medicine after the expiration date. What should I tell my health care provider before I take this medicine? They need to know if you have any of these conditions: heart disease history of irregular heartbeat liver disease low levels of magnesium or potassium in the blood an unusual or allergic reaction to ondansetron, granisetron, other medicines, foods, dyes, or preservatives or trying to get breast-feeding What should I watch for while using this medicine? Check with your doctor or health neonatal intensive care unit nurse as soon as you can if you have any sign of an allergic reaction. You have been given the following additional information: Ondansetron Oral disintegrating tablet Rest. (Electronically signed by Jada Carnes PA-C 02/06/2017 16:11)
--- NOTE | 2017-02-06 16:11 | ED MED RECONCILIATION SUMMARY ---
Patient: KOURTNEY MARTINEZ Medication Reconciliation Report [facility] VisitID: [id number] [place] [address] 36y, F Registration Date/Time: 02/06/2017 Weight: 53.5 kg Height/Length: 68 in. BMI: 17.9 ALLERGIES: No Known Drug Allergy The patient's Home Medications are listed below: CONTINUE TAKING THE FOLLOWING MEDICATIONS: Gabapentin Oral (600 mg) 2 tablets, daily HYDROmorphone HCl Oral Topamax Oral (50 mg) 1 tablet, daily The source(s) of the original Home Medication information: Not obtained. The following Medications were given to the patient in the Emergency Department: IV NS IV Fluids bolus 0, then 1000 mL/hr, administered: 02/06/2017 1:02:00 PM Reglan [IVP] IVP 10 mg, administered: 02/06/2017 1:05:00 PM Zofran [IVP] IVP 4 mg, administered: 02/06/2017 2:34:00 PM The following Medications were prescribed to the patient: Zofran (orally disintegrating tablets) 4 mg: take 1 orally every 6 hours as needed for nausea and vomiting. Dispense ten (10). No refill. Substitution is permissible. -- Jada Carnes PA-C
--- NOTE | 2017-02-06 16:11 | ED MAR SUMMARY ---
..... Medication Administration Record [facility] [address] [place] [address] Patient: KOURTNEY MARTINEZ Visit ID: [id number] 36y, F Weight: 53.5 kg Height/Length: 68 in BMI: 17.9 ALLERGIES: No Known Drug Allergy Start 13:02 02/06/2017 Lona Amador R.N., Stop 14:13 02/06/2017 Lona Amador R.N. Medication Administered: IV NS (SALINE), Dose: IV Fluids over 1 hour(s), Rate: 1000 mL/hr, Dispensed: 1000 mL bag, Site: #1 left AC. Medication Ordered: IV NS with Normal Saline 1 Liter: initial bolus none -, then 1000 mL/hr for X1 (NOW). Given 13:05 02/06/2017 Lona Amador R.N. Medication Administered: REGLAN [IVP] (METOCLOPRAMIDE HCL), Dose: 10 mg IVP over 2 minute(s), Site: #1 left AC. Medication Ordered: Reglan IV 10 mg (NOW). Given 14:34 02/06/2017 Val Burgos R.N. Medication Administered: ZOFRAN [IVP] (ONDANSETRON HCL), Dose: 4 mg IVP over 1 minute(s), Site: #1 left AC. Medication Ordered: Zofran IV 4 mg (NOW).
--- NOTE | 2017-02-06 16:11 | ED MAR SUMMARY ---
..... Medication Administration Record [facility] [address] [place] [address] Patient: KOURTNEY MARTINEZ Visit ID: [id number] 36y, F Weight: 53.5 kg Height/Length: 68 in BMI: 17.9 ALLERGIES: No Known Drug Allergy Start 13:02 02/06/2017 Lona Amador R.N., Stop 14:13 02/06/2017 Lona Amador R.N. Medication Administered: IV NS (SALINE), Dose: IV Fluids over 1 hour(s), Rate: 1000 mL/hr, Dispensed: 1000 mL bag, Site: #1 left AC. Medication Ordered: IV NS with Normal Saline 1 Liter: initial bolus none -, then 1000 mL/hr for X1 (NOW). Given 13:05 02/06/2017 Lona Amador R.N. Medication Administered: REGLAN [IVP] (METOCLOPRAMIDE HCL), Dose: 10 mg IVP over 2 minute(s), Site: #1 left AC. Medication Ordered: Reglan IV 10 mg (NOW). Given 14:34 02/06/2017 Val Burgos R.N. Medication Administered: ZOFRAN [IVP] (ONDANSETRON HCL), Dose: 4 mg IVP over 1 minute(s), Site: #1 left AC. Medication Ordered: Zofran IV 4 mg (NOW).
== END 2017-02-06 14:48 | disposition home or self-care (01) ==
LOC: ED SRH 12:01
DX: R11.2 Nausea with vomiting, unspecified (principal); E86.0 Dehydration; Z79.899 Other long term (current) drug therapy
CPT/HCPCS: 90004; 90100; 92235; 92530; 95059